=== PATIENT | female | born 1970 | race Caucasian/White ===

== ENCOUNTER 2019-02-26 09:44 | Emergency (ER) | payer BC ==
[~2019-02-26] VITALS: Ht 170.2 cm; Wt 70.0 kg
[2019-02-26 09:53] VITALS: Ht 170.2 cm; Wt 70.0 kg
[2019-02-26] MEDS ORDERED: SOD CHLORIDE 0.9% 500 ML IV STA (10:05)
[2019-02-26] MEDS ORDERED: morphine 2 MG INJ IV STA (10:05)
[2019-02-26] MEDS ORDERED: DIPHTH/TET/ACEL PERTUSS (ADULT) 0.5 ML VIAL IM* ONE (10:30)
[2019-02-26] MEDS ORDERED: ONDANSETRON 4 MG INJ IV ONE (10:30)
[2019-02-26] MEDS ORDERED: OMEP20CA16 PO (11:42)
[2019-02-26] MEDS ORDERED: LURA80TA PO (11:42)
[2019-02-26] MEDS ORDERED: GABA300C16 PO (11:42)
[2019-02-26] MEDS ORDERED: BENA10TA4 PO (11:43)
[2019-02-26] MEDS ORDERED: ATOR40TA68 PO (11:43)
[2019-02-26] MEDS ORDERED: METF500T24 PO (11:43)
[2019-02-26] MEDS ORDERED: DULO60CA59 PO (11:44)
[2019-02-26] MEDS ORDERED: ESOM40CA PO (11:44)
[2019-02-26] MEDS ORDERED: TRAZ-150 PO (11:44)
[2019-02-26] MEDS ORDERED: IBUP800T48 PO (12:31)
[2019-02-26] MEDS ORDERED: HYDR-3980 PO (12:31)
[2019-02-26] MEDS ORDERED: NALO4SPR NS (12:31)
[2019-02-26] MEDS ORDERED: ONDA4TAB14 PO (12:31)
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
[2019-02-26 12:47] VITALS: BP 160/80; PULSE 70; RESP 18
== END 2019-02-26 12:49 | disposition home or self-care (01) ==
LOC: E/R 09:44
DX: S01.111A Laceration without foreign body of right eyelid and periocular area, initial encounter (principal); S60.211A Contusion of right wrist, initial encounter; S09.90XA Unspecified injury of head, initial encounter; Y04.2XXA Assault by strike against or bumped into by another person, initial encounter; Y92.9 Unspecified place or not applicable; Z79.84 Long term (current) use of oral hypoglycemic drugs; Z23 Encounter for immunization
CPT/HCPCS: 12011; 29125; 70450; 70486; 73110; 73130; 80048; 81025; 85025; 85610; 85730; 90471; 90715; 96374; 96375; 99285; J2270; J2405; J7040